=== PATIENT | male | born 1980 | race African-American/Black ===

== ENCOUNTER 2017-10-27 07:40 | Emergency (ER) | payer BC, OTHER ==
[2017-10-27 07:51] VITALS: BP 135/84; PULSE 79; TEMP 97.7; BMI 26.9
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
[2017-10-27] MEDS ORDERED: IBUPROFEN 400 MG TABLET (FP) PO ONE ×2 (08:31→08:32)
== END 2017-10-27 09:54 | disposition home or self-care (01) ==
LOC: JERFT 07:40
DX: M25.511 Pain in right shoulder (principal); M25.531 Pain in right wrist; V43.52XA Car driver injured in collision with other type car in traffic accident, initial encounter; Y92.414 Local residential or business street as the place of occurrence of the external cause; Y93.89 Activity, other specified; Y99.8 Other external cause status
CPT/HCPCS: 73030-TC-RT-FY; 73110-TC-RT-FY; 73130-TC-RT-FY; 99281-25